=== PATIENT | male | born 1960 | race Caucasian/White ===

== ENCOUNTER → 2016-07-28 | Day surgery (SDC) | payer BC ==
[~2016-07-28] VITALS: Ht 175.3 cm; Wt 127.3 kg
[~2016-07-28] MED LIST: AMIT75TA2 PO; CEFD300C2 PO; GABA800T PO; IBUP1CAP9 PO; LIDOCAINE HCL 2% 2 ML VIAL (20MG/ML) ONE; MIDAZOLAM HCL 1 MG/ML 2ML VIAL ONE; MULT-506 PO; ONDANSETRON INJ 2 MG/ML 2 ML VIAL ONE; PROPOFOL IV EMULSION 10 MG/ML 20 ML VIAL IV ONE; SODIUM CHLORIDE 0.9% 500ML 500 ML IV ONE
[2016-07-28 09:25] VITALS: TEMP 36.8
[2016-07-28 09:26] VITALS: Ht 175.3 cm; Wt 127.3 kg
--- NOTE | 2016-07-28 09:39 | Endo History and Physical ---
History & Physical Date of Service: Jul 28, 2016. Chief Complaint: SCREEENING FOR COLON CANCER Referring Physician: WILD MAXWELL NP History of Present Illness 55 yo CM who presents for screening colonoscopy. Past Surgical History Hx Cardiac Surgery: No Hx Internal Defibrillator: No Hx Pacemaker: No Hx Abdominal Surgery: No Hx of Implantable Prosthesis: No Hx Post-Op Nausea and Vomiting: No Hx Cancer Surgery: No Hx Thoracic Surgery: No Hx Orthopedic: Yes (R AKA) Hx Urinary Tract Surgery: No Family History None Social History Smoking Status: Never Smoker Hx Substance Use: No Hx Alcohol Use: Yes (OCCASSIONALLY) Allergies Coded Allergies: No Known Allergies (Verified , 07/28/16) Current Medications Reported Home Medications Medications Dose Route/Sig Max Daily Dose Days Date Category Ibuprofen 200 Mg Cap 600 Mg PO Q6 PRN 07/28/16 Reported Multivitamin (Multivitamins) Tab 1 Tab PO QAM 07/10/16 Reported Elavil (Amitriptyline Hcl) 75 Mg Tab 75 Mg PO QPM 07/10/16 Reported Neurontin (Gabapentin) 800 Mg Tab 800 Mg PO BID 07/10/16 Reported Vital Signs Weight (Kilograms): 127.27 Height (Feet): 5 Height (Inches): 9 Date Time Temp Pulse Resp B/P Pulse Ox O2 Delivery O2 Flow Rate FiO2 07/28/16 09:25 36.8 94 22 185/87 94 Room Air Physical Exam General Appearance: WD/WN, no apparent distress Respiratory/Chest: Auscultation: breath sounds normal Cardiovascular: Heart Auscultation: RRR Abdomen: Bowel Sounds: normal Inspection & Palpation: soft, non-distended, no tenderness, guarding & rebound Assessment and Plan Assessment: 55 yo CM who presents for screening colonoscopy. Plan: Proceed with colonoscopy.
--- NOTE | 2016-07-28 10:13 | Discharge Instructions ---
Endoscopy Patient Instructions Date / Procedure(s) Performed Jul 28, 2016. Colonoscopy Allergy Information Coded Allergies: No Known Allergies (Verified , 07/28/16) Discharge Date / Findings Jul 28, 2016. Rectal polyp Medication Instructions OK to resume all medications today as prescribed. Reported Home Medications Medications Dose Route/Sig Max Daily Dose Days Date Category Ibuprofen 200 Mg Cap 600 Mg PO Q6 PRN 07/28/16 Reported Multivitamin (Multivitamins) Tab 1 Tab PO QAM 07/10/16 Reported Elavil (Amitriptyline Hcl) 75 Mg Tab 75 Mg PO QPM 07/10/16 Reported Neurontin (Gabapentin) 800 Mg Tab 800 Mg PO BID 07/10/16 Reported Provider Instructions Activity Restrictions - No exercising or heavy lifting for 24 hours. - Do not drink alcohol the day of the procedure. - Do not drive a car or operate machinery until the day after the procedure. - Do not make any important decisions or sign important papers in 24 hours after the procedure. Following Day: - Return to full activity which may include returning to work/school. Diet Start your diet with liquids and light foods (jello, soup, juice, toast). Then eat your usual diet if not nauseated. Treatment For Common After Affects For mild abdominal pain, bloating, or excessive gas: - Rest - Eat lightly - Lie on right side Follow-Up Information Follow-up with WILD MAXWELL NP as scheduled Anesthesia Information What You Should Know You have had a procedure that required some medicine to reduce anxiety and discomfort. This treatment is called moderate sedation. After receiving the treatment, you may be sleepy, but you will be able to breathe on your own. The effects of the treatment may last for several hours. Follow these instructions along with Activity/Diet recommendations noted above: * Do NOT do anything where dizziness or clumsiness would be dangerous. * Rest quietly at home today, then you can be up and about tomorrow. * Have a responsible person stay with you the rest of today. * You may have had an I.V. today. If so, you may take the dressing off later today. Recommendations Call your doctor if: * Trouble breathing * Continuous vomiting for more than 24 hours * Temperature above 101 degrees * Severe abdominal pain or bloating * Pain not relieved by pain medicine ordered * There is increased drainage or redness from any incision * A large amount of rectal bleeding greater than 2-3 tablespoons. (If you had a polyp/s removed or have hemorrhoids, a small amount of blood - from the rectum is to be expected.) * You have any unanswered questions or concerns. IN THE EVENT OF A SERIOUS EMERGENCY, GO TO THE NEAREST EMERGENCY ROOM Your discharge instructions were prepared by provider Krishna Prasad. Patient Instructions Signature Page Angelika Rodriguez Patient (or Guardian) Signature/Date: I have read and understand the instructions given to me by my caregivers. Caregiver/RN/Doctor Signature/Date: The above-named patient and/or guardian has received patient instructions on this date. + Original Patient Signature Page (only) stays with chart. Please make copy for patient.
--- NOTE | 2016-07-28 10:16 | GI REPORT ---
Procedure Date: 07/28/2016 9:50 AM Procedure: Colonoscopy Indications: Screening for colorectal malignant neoplasm Medicines: Monitored Anesthesia Care Complications: No immediate complications. Estimated Blood Loss: Estimated blood loss: none. Procedure: Pre-Anesthesia Assessment: - Prior to the procedure, a History and Physical was performed, and patient medications and allergies were reviewed. The patient's tolerance of previous anesthesia was also reviewed. The risks and benefits of the procedure and the sedation options and risks were discussed with the patient. All questions were answered, and informed consent was obtained. Prior Anticoagulants: The patient has taken no previous anticoagulant or antiplatelet agents. ASA Grade Assessment: II - A patient with mild systemic disease. After reviewing the risks and benefits, the patient was deemed in satisfactory condition to undergo the procedure. After I obtained informed consent, the scope was passed under direct vision. Throughout the procedure, the patient's blood pressure, pulse, and oxygen saturations were monitored continuously. The scope was introduced through the anus and advanced to the terminal ileum. The colonoscopy was performed without difficulty. The patient tolerated the procedure well. The quality of the bowel preparation was good. The terminal ileum, ileocecal valve, appendiceal orifice, and rectum were photographed. Findings: A 4 mm polyp was found in the rectum. The polyp was sessile. The polyp was removed with a cold snare. Resection and retrieval were complete. The exam was otherwise without abnormality. Impression: - One 4 mm polyp in the rectum, removed with a cold snare. Resected and retrieved. - The examination was otherwise normal. Recommendation: - Resume previous diet. - Continue present medications. - Repeat colonoscopy for surveillance based on pathology results. - Return to primary care physician as previously scheduled. Krishna Prasad, DO 07/28/2016 10:15:09 AM This report has been signed electronically. Note Initiated On: 07/28/2016 9:50 AM
[2016-07-28 10:40] VITALS: BP 118/66; PULSE 79; O2SAT 94
--- NOTE | 2016-07-28 12:08 | Anesthesiology Progress Note ---
Anesthesia Post Op Note Date & Time Jul 28, 2016 at 12:08 Vital Signs Pain Intensity: 0 Vital Signs Past 12 Hours Date Time Temp Pulse Resp B/P Pulse Ox O2 Delivery O2 Flow Rate FiO2 07/28/16 10:40 79 18 118/66 94 Room Air 07/28/16 10:25 81 16 121/70 94 Room Air 07/28/16 10:10 86 16 124/72 94 Room Air 07/28/16 09:25 36.8 94 22 185/87 94 Room Air Notes Mental Status: alert / awake / arousable Nausea / Vomiting: adequately controlled Pain: adequately controlled Airway Patency, RR, SpO2: stable & adequate BP & HR: stable & adequate Hydration State: stable & adequate Anesthetic Complications: no major complications apparent
== END | disposition home or self-care (01) ==
LOC: C.GI 09:01
PROVIDERS: ATTEND Internal Medicine
DX: Z12.11 Encounter for screening for malignant neoplasm of colon (principal); K62.1 Rectal polyp

== ENCOUNTER 2016-09-08 17:19 | Emergency (ER) | payer BC ==
[~2016-09-08] VITALS: Ht 175.3 cm; Wt 127.6 kg
[~2016-09-08 17:19] MED LIST changes: -CEFD300C2 PO; -LIDOCAINE HCL 2% 2 ML VIAL (20MG/ML) ONE; -MIDAZOLAM HCL 1 MG/ML 2ML VIAL ONE; -ONDANSETRON INJ 2 MG/ML 2 ML VIAL ONE; -PROPOFOL IV EMULSION 10 MG/ML 20 ML VIAL IV ONE; -SODIUM CHLORIDE 0.9% 500ML 500 ML IV ONE
[2016-09-08 17:29] VITALS: Ht 175.3 cm; Wt 127.6 kg
[2016-09-08] MEDS ORDERED: ONDANSETRON INJ 2 MG/ML 2 ML VIAL IV STA (18:07)
[2016-09-08] MEDS ORDERED: SODIUM CHLORIDE 0.9% 1000ML 1,000 ML IV STA (18:07)
[2016-09-08] MEDS ORDERED: MoRPHine SULFATE 10 MG/ML CARP/VIAL IV PRN (18:15)
[2016-09-08] MEDS ORDERED: MoRPHine SULFATE 4 MG/ML 1 ML CARP\\VIAL ONE (18:33)
[2016-09-08 18:41] LABS: BASO % 0.1 %; BASO ABS # 0.02 K/uL (0-0.2); COMPLETE YES; EOS % 1.7 %; HEMATOCRIT 46.2 % (42-52); IG% 0.3 %; LYMPH % 17.5 %; LYMPH ABS # 2.96 K/uL (1.2-3.4); MEAN CELL VOLUME 83.8 fL (80-100); MEAN CORPUSCULAR HEMOGLOBIN 28.7 pg (25-34); MEAN CORPUSCULAR HGB CONC 34.2 g/dl (32-36); MEAN PLATELET VOLUME 10.7 fL (7.4-10.4); MONO % 5.9 %; NEUT % 74.5 %; PLATELET COUNT 245 K/uL (130-400); RED BLOOD COUNT 5.51 M/uL (4.7-6.1); WHITE BLOOD COUNT 16.87 K/uL (4.8-10.8)
[2016-09-08 19:09] LABS: URINE APPEARANCE CLEAR (CLEAR); URINE BILIRUBIN NEG (NEG); URINE COLOR YELLOW; URINE EPITHELIAL CELL AUTO 0-5 /lpf (0-5); URINE NITRITE NEG (NEG); URINE SPECIFIC GRAVITY 1.014 (1.000-1.030); UROBILINOGEN NEG (NEG)
[2016-09-08 19:17] LABS: BUN/CREATININE RATIO 10.5 (10-20); CALCIUM 9.4 mg/dl (8.5-10.1); CREATININE 1.1 mg/dl (0.60-1.40)
[2016-09-08 19:22] LABS: MANUAL MICROSCOPIC REQUIRED? NO; REVIEW REQ? NO
--- NOTE | 2016-09-08 19:54 | DIAGNOSTIC IMAGING REPORT ---
SCROTAL ULTRASOUND CLINICAL HISTORY: Left testicular pain. COMPARISON STUDY: None. TECHNIQUE: Grayscale and color and duplex Doppler sonography of the scrotum was performed. FINDINGS: The right testis measures 4.6 x 2.3 x 2.7 cm and the left measures 3.9 x 2.4 x 2.9 cm. There is no testicular mass and color flow within each testis is symmetric. There are small bilateral epididymal head cysts. There is no sonographic evidence of epididymitis. There are small bilateral hydroceles. IMPRESSION: 1. Normal sonographic appearance of the testes. No evidence of torsion. 2. No sonographic evidence of epididymitis. 3. Small bilateral hydroceles. Electronically signed by: Cristo Arthur M.D. 09/08/2016 7:53 PM Dictated Date/Time: 09/08/2016 7:51 PM
[2016-09-08 20:25] VITALS: TEMP 36.9
--- NOTE | 2016-09-08 21:02 | DIAGNOSTIC IMAGING REPORT ---
CT OF THE ABDOMEN AND PELVIS WITHOUT CONTRAST CLINICAL HISTORY: Left testicular pain. Elevated white blood cell count. COMPARISON STUDY: No previous studies for comparison. TECHNIQUE: Axial images of the abdomen and pelvis were obtained without IV contrast. Images were reviewed in the axial, sagittal, and coronal planes. FINDINGS: Visualized portions of the lower chest demonstrate multiple healed left-sided rib fractures. No pneumatosis, free air or portal venous gas is present. No renal, ureteral or bladder calculi are present. There is no hydronephrosis or hydroureter. Evaluation of the remainder of the abdomen and pelvis is suboptimal on this unenhanced examination. There is fatty infiltration of the liver. No peripancreatic or pericholecystic infiltration is present. Unenhanced images of the spleen and adrenal glands are unremarkable. There is no evidence for a bowel obstruction. The appendix is normal. There is a fat-containing left inguinal hernia. The scrotum was not imaged on this CT. No infiltration is identified within visualized portions of the perineum. No enlarged lymph nodes are identified. An intramedullary katherin within the right femur is partially imaged. IMPRESSION: 1. No urinary calculi or hydronephrosis. 2. Fat-containing left inguinal hernia. 3. Scrotum not imaged on this exam. No infiltration within visualized portions of the perineum. 4. Fatty liver. Electronically signed by: Cristo Arthur M.D. 09/08/2016 9:01 PM Dictated Date/Time: 09/08/2016 8:53 PM
[2016-09-08] MEDS ORDERED: CEFTRIAXONE SOD INJ 1 GM in DEXTROSE 5% ADD-VANTAGE 50ML 50 ML IV STA (21:19)
[2016-09-08] MEDS ORDERED: CEFD300C2 PO (21:38)
[2016-09-08 21:59] VITALS: BP 130/74; PULSE 78; O2SAT 98
--- NOTE | 2016-09-09 01:40 | EMERGENCY ROOM VISIT NOTE ---
ED Visit Note First contact with patient: 17:42 Chief Complaint: Left testicular pain. History of Present Illness: Mr. Rodriguez is a 55-year-old white male who ambulates into the ED with the use of a cane in his prosthetic leg complaining of left testicular pain. Historically patient reports he has noticed since he has his prosthetic leg and he wears shorts that intermittently when he is getting out of his truck he accidentally sits on his testicles. This normally causes short-term pain but not severe. Patient reports yesterday he started noticing mild pain in the left testicle. The pain gradually increased overnight and became severe and constant today. He describes his pain as a pressure and sometimes sharp sensation. He rates his discomfort 6/10 when the testicles are remaining dependent and much less when he is at rest and the testicles are not hanging dependent. He also notes pain worsens with palpation. He has tried ibuprofen without relief of his discomfort. Associated with his pain he has noted over the last 12 hours urinary urgency and minimal urinary burning but no urinary frequency or hematuria and intermittent nausea with pain exacerbation. He denies fevers, chills, sweats, upper respiratory tract symptoms, cough, shortness of breath, chest pain, abdominal pain, vomiting, diarrhea, constipation, previous surgeries to his genitals, back/flank pain. Review of Systems: As noted above in history of present illness. All body systems were reviewed and found to be negative as noted above. Past Medical History: Unspecified skin disorder, dyslipidemia, right femur fracture, right [id number] amputation, claustrophobia, status post wisdom teeth extraction. Current Medications: Neurontin, Elavil, multivitamins, ibuprofen. Allergies to Medications: Patient denies. Social History: Patient is currently employed; he feels safe in his home environment; he denies tobacco use. Physical Examination: Vital Signs: Date Time Temp Pulse Resp B/P Pulse Ox O2 Delivery O2 Flow Rate FiO2 09/08/16 21:59 78 20 130/74 98 09/08/16 20:25 36.9 09/08/16 18:47 98 18 136/82 93 Room Air 09/08/16 17:29 37.1 109 18 183/90 96 Room Air GENERAL: 55-year-old male in mild to moderate distress due to pain, nontoxic- appearing, afebrile and hemodynamically stable. NEUROLOGICAL: Awake, alert and oriented to person, place and time. Answering questions appropriately and following commands. Good hand eye coordination. SKIN: Warm, dry and pink. HEENT: Atraumatic and normocephalic. PERRLA. Sclera white and conjunctiva pink. Pharynx is nonerythematous or edematous. Speech normal. No lymphadenopathy. Trachea midline. No jugular venous distention. BACK: No tenderness over the bony cervical, thoracic, lumbar and sacral spines. No paraspinous muscle tenderness or spasm. No CVA tenderness. THORAX: Lungs sounds are clear to auscultation and equal bilaterally with symmetrical chest wall. No wheezing, rales or rhonchi. HEART: Regular rate and rhythm. No gallops, rubs or murmurs are appreciated. ABDOMEN: Morbidly obese, soft and nontender. Positive bowel sounds in all quadrants. No guarding, rigidity or organomegaly. GENITALS: Mature, circumcised penis; Glans is retracted. No external erythema, edema or skin eruptions. No tenderness throughout the penis and no drainage from the meatus. Mild tenderness of the left testicle and no tenderness of the right testicle. The testicle was firm and smooth and no masses were palpable. Because of body habitus it was difficult to evaluate his epididymis. No palpable scrotal or inguinal masses. No local lymphadenopathy. ED Course: Patient is assessed as noted above. Laboratory Testing: Test 09/08/16 18:25 Range/Units White Blood Count 16.87 4.8-10.8 K/uL Red Blood Count 5.51 4.7-6.1 M/uL Hemoglobin 15.8 14.0-18.0 g/dL Hematocrit 46.2 42-52 % Mean Corpuscular Volume 83.8 80-100 fL Mean Corpuscular Hemoglobin 28.7 25-34 pg Mean Corpuscular Hemoglobin Concent 34.2 32-36 g/dl Platelet Count 245 130-400 K/uL Mean Platelet Volume 10.7 7.4-10.4 fL Neutrophils (%) (Auto) 74.5 % Lymphocytes (%) (Auto) 17.5 % Monocytes (%) (Auto) 5.9 % Eosinophils (%) (Auto) 1.7 % Basophils (%) (Auto) 0.1 % Neutrophils # (Auto) 12.56 1.4-6.5 K/uL Lymphocytes # (Auto) 2.96 1.2-3.4 K/uL Monocytes # (Auto) 1.00 0.11-0.59 K/uL Eosinophils # (Auto) 0.28 0-0.5 K/uL Basophils # (Auto) 0.02 0-0.2 K/uL RDW Standard Deviation 44.5 36.4-46.3 fL RDW Coefficient of Variation 14.6 11.5-14.5 % Immature Granulocyte % (Auto) 0.3 % Immature Granulocyte # (Auto) 0.05 0.00-0.02 K/uL Urine Color YELLOW Urine Appearance CLEAR CLEAR Urine pH 5.0 4.5-7.5 Urine Specific [place] 1.014 1.000-1.030 Urine Protein NEG NEG Urine Glucose (UA) NEG NEG Urine Ketones NEG NEG Urine Occult Blood TRACE NEG Urine Nitrite NEG NEG Urine Bilirubin NEG NEG Urine Urobilinogen NEG NEG Urine Leukocyte Esterase LARGE NEG Urine WBC (Auto) >30 0-5 /hpf Urine RBC (Auto) 0-4 0-4 /hpf Urine Hyaline Casts (Auto) 1-5 0-5 /lpf Urine Epithelial Cells (Auto) 0-5 0-5 /lpf Urine Bacteria (Auto) 2+ NEG Sodium Level 139 136-145 mmol/L Potassium Level 4.0 3.5-5.1 mmol/L Chloride Level 106 98-107 mmol/L Carbon Dioxide Level 22 21-32 mmol/L Anion Gap 11.0 3-11 mmol/L Blood Urea Nitrogen 12 7-18 mg/dl Creatinine 1.10 0.60-1.40 mg/dl Est Creatinine Clear Calc Drug Dose 101.5 ml/min Estimated GFR () 87.7 Estimated GFR (Non- 75.7 BUN/Creatinine Ratio 10.5 10-20 Random Glucose 101 70-99 mg/dl Calcium Level 9.4 8.5-10.1 mg/dl Chemistry Specimen Hemolysis Urine Culture: Pending Testicular Ultrasound: Was reviewed by myself and read by the radiologist showing normal sonographic appearance of the testicles with no evidence of torsion. No sonographic evidence of epididymitis. Small bilateral hydroceles. Contrast Abdominal/Pelvic CT: Was reviewed by myself and read by the radiologist showing no free air, portable gas or pneumatosis. No renal, ureter or bladder calculi. No hydronephrosis or hydroureter. Fatty infiltration of the liver. No pancreatic or per coalesced taken phonation. Normal-appearing adrenal glands and spleen. Normal-appearing appendix. Fat-containing left inguinal hernia. Scrotum was not imaged. No infiltration within the visible portions of the peritoneum. No enlargement of the lymph nodes. Right femur ride partially identified. Patient was hydrated with normal saline, he received a total of 8 mg of morphine IV for pain, 4 mg of Zofran IV and 1 g of ceftriaxone IV for antibiotic coverage. Patient was reassessed multiple times during his stay in the emergency department. Patient's case was reviewed with Dr. Britton; we agreed on diagnostic approach, treatment, disposition and plan. Patient was educated about tonight's findings and instructed on his treatment plan; he verbalizes understanding and agreement with this plan. Clinical Impression: Urinary tract infection. Left testicular pain. Decision-Making: Initially my differential diagnosis I considered kidney stone, pyelonephritis, testicular torsion, testicular mass, testicular trauma, inguinal hernia and other causes. Disposition: Patient discharged home in stable condition accompanied by his girlfriend; prior to departure he was reassessed and subjectively reported he was feeling better and rated his discomfort 3/10. Plan: Alternate 600 mg of ibuprofen and 650 mg of acetaminophen every 3 hours as needed for pain. Use 300 mg of Omnicef 2 times a day for 14 days. Use supportive underwear as we discussed. Stay well-hydrated with increased clear fluids. Follow-up with your primary care provider for recheck in 2-4 days. Return to the ED for worsening/uncontrolled pain, fevers, vomiting or any new/ concerning symptoms.
--- NOTE | 2016-09-11 10:52 | Pharmacy Progress Note ---
ED Pharmacist Culture FollowUp Date of Service: Sep 11, 2016. Patient was sent home with a prescription for Omnicef 300mg PO BID x 14 days, which should cover the pansensitive e coli growing from the patient's URINE culture.
== END 2016-09-08 22:01 | disposition home or self-care (01) ==
LOC: C.EDB 17:20 → C.EDD 22:01
DX: N39.0 Urinary tract infection, site not specified (principal); N50.812 Left testicular pain; A49.8 Other bacterial infections of unspecified site

== ENCOUNTER 2017-11-27 19:06 | Emergency (ER) | payer BC ==
[~2017-11-27] VITALS: Ht 175.3 cm; Wt 131.8 kg
[2017-11-27 19:11] VITALS: TEMP 36.7; Ht 175.3 cm; Wt 131.8 kg
[2017-11-27] MEDS ORDERED: IBUPROFEN 200 MG TAB PO STA (19:25)
[2017-11-27] MEDS ORDERED: ACETAMINOPHEN 500 MG TAB PO STA (19:25)
[2017-11-27] MEDS ORDERED: ALBUT/IPRATROP 3MG/0.5MG NEB 3 ML VIAL INH STA ×2 (19:25→21:06)
--- NOTE | 2017-11-27 19:33 | EMERGENCY ROOM VISIT NOTE ---
History First contact with patient: 19:14 Chief Complaint: COUGH Stated Complaint: BAD COUGH, WHEEZING, SINUS/HEAD FEELS LIKE CRAP History of Present Illness The patient is a 57 year old male who presents to the Emergency Room with complaints of cough and shortness of breath for the last 4 days. The cough is productive with green sputum. He also feels feverish. He also reports sinus congestion. He denies any history of pulmonary disease. No sick contacts. No vomiting. Review of Systems 10 system review performed and negative unless noted in HPI or below Past Medical/Surgical History History of a right leg amputation Social History Smoking Status: Never Smoker Drug Use: none Marital Status: , in relationship Occupation Status: employed Current/Historical Medications Scheduled Amitriptyline Hcl (Elavil), 75 MG PO QPM Amoxicillin & Pot Clavulanate (Augmentin 875-125 mg), 1 TAB PO BID Gabapentin (Neurontin), 800 MG PO BID Multivitamin (Multivitamin), 1 TAB PO QAM Prednisone (Prednisone), 50 MG PO DAILY Scheduled PRN Ibuprofen (Ibuprofen), 600 MG PO Q6 PRN for Pain or Fever Physical Exam Vital Signs Date Time Temp Pulse Resp B/P (MAP) Pulse Ox O2 Delivery O2 Flow Rate FiO2 11/27/17 21:59 90 114/74 94 11/27/17 21:06 86 131/65 93 Room Air 11/27/17 19:22 96 11/27/17 19:11 36.7 93 18 153/88 96 Room Air Physical Exam VITALS: Vitals are noted on the nurse's note and reviewed by myself. Vital signs stable. GENERAL: 57-year-old male, mildly acutely ill SKIN: The skin was without rashes, erythema, edema, or bruising. HEAD: Normocephalic atraumatic. EARS: Left tympanic membrane is erythematous and bulging EYES: Conjunctivae without injection, sclerae without icterus. Extraocular movements intact. NOSE: No sinus tenderness. MOUTH: Mucous membranes moist. Tonsils are not enlarged. Pharynx without erythema or exudate. Uvula midline. Airway patent. Tongue does not deviate. NECK: Supple without nuchal rigidity. No lymphadenopathy. Cervical spine is nontender. No JVD. HEART: Regular rate and rhythm without murmurs gallops or rubs. LUNGS: Diffuse wheeze in all lung guzman. No tachypnea. ABDOMEN: Positive bowel sounds x 4.Soft, nontender, without organomegaly. No guarding or rebound tenderness. MUSCULOSKELETAL: Right BKA noted NEURO: Patient was alert and oriented to person place and time. Normal sensation to touch. No focal neurological deficits. Medical Decision & Procedures ER Provider Diagnostic Interpretation: Chest x-ray IMPRESSION: 1. Cardiomegaly. No other convincing evidence of acute cardiopulmonary disease. Electronically signed by: Martín Guerra M.D. 11/27/2017 9:17 PM Dictated Date/Time: 11/27/2017 9:16 PM Laboratory Results Test 11/27/17 19:40 Influenza Type A Antigen Neg for Influ A (NEG) Influenza Type B Antigen Neg for Influ B (NEG) Medications Administered Medications (Trade) Dose Ordered Sig/Nahomy Route Start Time Stop Time Status Last Admin Dose Admin Prednisone (PredniSONE TAB) 60 mg NOW STAT PO 11/27/17 19:25 11/27/17 19:30 DC 11/27/17 19:37 60 MG Albuterol/ Ipratropium (Duoneb) 3 ml ONE STAT INH 11/27/17 19:25 11/27/17 19:30 DC 11/27/17 19:38 3 ML Ibuprofen (Advil Tab) 800 mg NOW STAT PO 11/27/17 19:25 11/27/17 19:30 DC 11/27/17 19:37 800 MG Acetaminophen (Tylenol Tab) 1,000 mg NOW STAT PO 11/27/17 19:25 11/27/17 19:30 DC 11/27/17 19:36 1,000 MG Amoxicillin/ Clavulanate Potassium (Augmentin Tab) 875 mg NOW ONCE PO 11/27/17 20:00 11/27/17 20:01 DC 11/27/17 20:08 875 MG Albuterol/ Ipratropium (Duoneb) 3 ml ONE STAT INH 11/27/17 21:06 11/27/17 21:07 DC 11/27/17 21:20 3 ML Albuterol (Ventolin Hfa Inhaler) 2 puffs NOW ONCE INH 11/27/17 21:15 11/27/17 21:16 DC 11/27/17 21:20 2 PUFFS ED Course The patient was seen and examined He was medicated with prednisone 60 mg, Tylenol 1000 mg, Motrin 800 mg He was given a DuoNeb imaging was performed and reviewed Upon reevaluation, the patient was still slightly wheezing. He was given an additional DuoNeb treatment. We discussed his results. He voiced understanding , was comfortable being discharged home The patient was given an albuterol inhaler Discharge instructions were reviewed, and he was discharged in good condition Medical Decision Differential diagnosis: Bronchitis, pneumonia, strep pharyngitis, viral pharyngitis, influenza, sinusitis, otitis media This patient is a 57-year-old male that presents to the emergency department with cough and congestion for the last several days. On exam, he had some wheezing. His left tympanic membrane was also erythematous. His x-ray was negative for pneumonia. This is likely due to a bronchitis. I also believe there is a sinus and left ear component to his illness. For this reason, the patient will be treated with a 10 day course of Augmentin. He was also given an inhaler. I believe he is stable to be discharged home as he is not hypoxic. He was comfortable with this plan. He will follow-up with his primary care physician, and will return with worsening symptoms This chart was completed in part utilizing [employer] Speech Voice Recognition software. Attempts were made to minimize the grammatical errors, random word insertions, pronoun errors and incomplete sentences. Any formal questions or concerns about the content, text or information contained within the body of this dictation should be directly addressed to the provider for clarification. Medication Reconcilliation Current Medication List: was personally reviewed by me Blood Pressure Screening Patient's blood pressure: Normal blood pressure Impression Primary Impression: Acute bronchitis Departure Information Dispostion Home / Self-Care Condition GOOD Prescriptions Amoxicillin & Pot Clavulanate (Augmentin 875-125 mg) 1 Tab Tab 1 TAB PO BID for 10 Days, #20 TAB Prov: Roz Taveras PA-C 11/27/17 Prednisone (Prednisone) 50 Mg Tab 50 MG PO DAILY for 4 Days, #4 TAB Prov: Roz Taveras PA-C 11/27/17 Referrals Riley Pastor III, CRNP (PCP) Patient Instructions Bronchitis Acute, My [facility] Additional Instructions You were seen in the emergency department for a cough and congestion. This is likely due to bronchitis. Please take the ENTIRE course of antibiotics. Please take the entire course of prednisone Use albuterol inhaler 2 puffs every 4 hours as needed for wheezing or shortness of breath Ibuprofen 800 mg and/or Tylenol 1000 mg every 8 hours for fever. You may also alternate these medications for more effective pain relief: Ibuprofen --4 HRS--> Tylenol --4 HRS--> ibuprofen --4 HRS--> Tylenol .... Please follow-up with your primary care physician early next week for recheck Do not hesitate to return to the emergency department with any new, worsening or concerning symptoms
[2017-11-27] MEDS ORDERED: AMOXICILLIN/CLAVULANATE TAB 875 MG TAB PO ONE (20:00)
[2017-11-27 20:06] LABS: INFLUENZA B ANTIGEN Neg for Influ B (NEG)
[2017-11-27] MEDS ORDERED: ALBUTEROL HFA 8 GM INHALER INH ONE (21:15)
--- NOTE | 2017-11-27 21:18 | DIAGNOSTIC IMAGING REPORT ---
CHEST 2 VIEWS ROUTINE CLINICAL HISTORY: 57 years-old Male presenting with productive cough. TECHNIQUE: PA and lateral views of the chest were obtained. COMPARISON: None. FINDINGS: Cardiac silhouette enlarged. Lungs and pleural spaces clear. Degenerative changes of the thoracic spine. Upper abdomen normal. IMPRESSION: 1. Cardiomegaly. No other convincing evidence of acute cardiopulmonary disease. Electronically signed by: Martín Guerra M.D. 11/27/2017 9:17 PM Dictated Date/Time: 11/27/2017 9:16 PM
[2017-11-27] MEDS ORDERED: AMOX875T PO (21:26)
[2017-11-27] MEDS ORDERED: PRED50TA PO (21:26)
[2017-11-27 21:59] VITALS: BP 114/74; PULSE 90; O2SAT 94
== END 2017-11-27 22:06 | disposition home or self-care (01) ==
LOC: C.EDB 19:08 → C.EDA 22:06
DX: J20.9 Acute bronchitis, unspecified (principal); Z79.899 Other long term (current) drug therapy